=== PATIENT | female | born 1955 | race Caucasian/White ===

== ENCOUNTER 2024-04-13 17:22 | Emergency (ER) | payer MEDICARE ==
[2024-04-13] MEDS: EPINEPHrine 1:10,000 1 MG/10 ML Syringe IVPUSH ONE (17:39)
== END 2024-04-13 17:48 | disposition expired ==
LOC: LB.ED 17:22
DX: I46.9 Cardiac arrest, cause unspecified (principal); W13.3XXA Fall through floor, initial encounter
CPT/HCPCS: 36680; 92950; 99285-25; A0425; A0429; J0171